=== PATIENT | female | born 1950 | race African-American/Black ===

== ENCOUNTER 2017-03-25 17:48 | Emergency (ER) | payer MEDICARE, OTHER ==
[~2017-03-25 17:48] MED LIST: ASPIRIN325 MG PO; ATORVASTATIN CA20 MG PO; BUMEX1 MG PO; CERTAGEN1 EACH PO; CITRACAL + D E1 EACH PO; CO Q-10100 MG PO; COZAAR50 MG PO; GALANTAMINE HBR4 MG PO; IBUPROFEN400 MG PO; LOVAZA1 GM PO; MICRO-K10 MEQ PO; TOPROL XL25 MG PO; VITAMIN D1000 UNI1 PO; XANAX
== END 2017-03-25 21:37 | disposition home or self-care (01) ==
LOC: FER 17:48
DX: S82.832A Other fracture of upper and lower end of left fibula, initial encounter for closed fracture (principal); I10 Essential (primary) hypertension; W17.2XXA Fall into hole, initial encounter; Y92.009 Unspecified place in unspecified non-institutional (private) residence as the place of occurrence of the external cause
CPT/HCPCS: 73610; 73630

== ENCOUNTER 2017-03-26 00:31 | Emergency (ER) | payer MEDICARE, OTHER | END 2017-03-26 02:38 | disposition home or self-care (01) | LOC: FER 00:31 | DX: S82.832A Other fracture of upper and lower end of left fibula, initial encounter for closed fracture (principal); I10 Essential (primary) hypertension; F03.90 Unspecified dementia, unspecified severity, without behavioral disturbance, psychotic disturbance, mood disturbance, and anxiety; Z79.82 Long term (current) use of aspirin; Z79.899 Other long term (current) drug therapy; W19.XXXA Unspecified fall, initial encounter | CPT/HCPCS: 99283 ==

== ENCOUNTER 2017-03-27 14:22 | Emergency (ER) | payer MEDICARE, OTHER ==
[2017-03-27 15:37] LABS: BASOPHIL 0.3 % (0-2); EOSINOPHIL 0.8 % (0-7); HCT 37.6 % (37.0-47.0); HGB 12.9 g/dl (12.5-16.0); LYMPHOCYTE 32.2 % (15-48); MCH 28.4 pg (25.0-31.0); MCHC 34.3 g/dL (32.0-36.0); MCV 82.8 fL (78.0-100.0); MONOCYTE 10.8 % (0-12); MPV 8.8 fL (6.0-9.5); NEUTROPHIL 55.9 % (41-80); PLT 226 K/uL (150-400); RBC 4.54 M/uL (4.20-5.40); RDW 13.9 % (11.5-14.0)
[2017-03-27 15:53] LABS: INR 1.14 (0.9-1.2); PROTHROMBIN TIME 14.2 SECONDS (11.7-14.0); PTT 32.6 SECONDS (23.2-31.4)
[2017-03-27 15:55] LABS: CREATININE 0.6 mg/dL (0.5-1.0); POTASSIUM 4.1 mmol/L (3.5-5.1)
[2017-03-27 17:33] LABS: BILIRUBIN NEGATIVE (NEGATIVE); BLOOD NEGATIVE Ery/uL (NEGATIVE); CLARITY SLIGHTLY HAZY (CLEAR); COLOR YELLOW (YELLOW); GLUCOSE (U) NORMAL (NORMAL); KETONE (U) NEGATIVE (NEGATIVE); LEUKOCYTES NEGATIVE Leu/uL (NEGATIVE); NITRITE NEGATIVE (NEGATIVE); PROTEIN NEGATIVE (NEGATIVE); pH 7.5 (5.0-9.0)
== END 2017-03-27 18:05 | disposition home or self-care (01) ==
LOC: FER 14:22
PROVIDERS: Emergency Medicine
DX: R41.82 Altered mental status, unspecified (principal); R41.0 Disorientation, unspecified; R55 Syncope and collapse; Z86.73 Personal history of transient ischemic attack (TIA), and cerebral infarction without residual deficits; F03.90 Unspecified dementia, unspecified severity, without behavioral disturbance, psychotic disturbance, mood disturbance, and anxiety; Z79.899 Other long term (current) drug therapy; Z79.82 Long term (current) use of aspirin
CPT/HCPCS: 36415; 70450; 71010; 80048; 81003; 84484; 85025; 85610; 85730; 93005